=== PATIENT | female | born 1945 | race Caucasian/White ===

== ENCOUNTER 2017-02-19 04:02 | Emergency (ER) | payer MEDICARE, BC ==
[2017-02-19 04:16] VITALS: BP 115/61
--- NOTE | 2017-02-19 04:41 | EDM.PDOC ---
ED HPI GENERAL MEDICAL PROBLEM - General Chief Complaint: General Stated Complaint: poss reaction to meds Time Seen by Provider: 02/19/17 04:31 - History of Present Illness INITIAL COMMENTS - FREE TEXT/NARRATIVE: 72-year-old female presents emergency room with a suspected reaction to clonazepam. The patient took her first dose of clonazepam this evening. She was placed on this for restless leg syndrome her last medication for restless leg syndrome was not working real well and was stopped. This evening she could not walk real well and became somewhat anxious after taking the medication. She is doing much better at this time. It sounds like she's had a long history with restless leg syndrome and sometimes it keeps her from sleeping several days in a row. - Related Data Allergies Allergy/AdvReac Type Severity Reaction Status Date / Time codeine Allergy Nausea Verified 02/19/17 04:15 Home Meds: Home Meds FLUoxetine [PROzac] 20 mg PO DAILY 09/15/14 [History] Propranolol [Inderal] 10 mg PO DAILY 09/15/14 [History] ClonazePAM [KlonoPIN] 0.5 mg PO BEDTIME 02/19/17 [History] busPIRone HCl [busPIRone] 30 mg PO DAILY 02/19/17 [History] Past Medical History Neurological History: Reports: Other (see below) Other Neuro History: RLS - Past Surgical History Musculoskeletal Surgical History: Reports: Hip replacement, Knee replacement Social & Family History - Family History Family Medical History: Noncontributory - Tobacco Use Smoking Status *Q: Never Smoker - Alcohol Use Days Per Week of Alcohol Use: 0 - Recreational Drug Use Recreational Drug Use: No ED ROS GENERAL - Review of Systems Review Of Systems: See Below Constitutional: Reports: no symptoms Respiratory: Reports: No Symptoms Cardiovascular: Reports: No symptoms GI/Abdominal: Reports: No symptoms : Reports: no symptoms Neurological: Reports: No Symptoms ED EXAM, GENERAL - Physical Exam Exam: See Below Exam Limited By: No limitations General Appearance: alert, no apparent distress, other (Patient has no complaints at this time) Respiratory/Chest: no respiratory distress, lungs clear, normal breath sounds Cardiovascular: regular rate, rhythm, no edema, no murmur Course - Vital Signs Last Recorded V/S: Last Vital Signs Temp 36.6 C 02/19/17 04:12 Pulse 80 05/11/17 04:12 Resp 16 02/19/17 04:12 BP 115/61 02/19/17 04:12 Pulse Ox 97 02/19/17 04:12 - Re-Assessments/Exams Free Text/Narrative Re-Assessment/Exam: 02/19/17 04:57 Discussed the situation with the patient. She's doing much better at this time and would like to go home. Departure - Departure Time of Disposition: 04:57 Disposition: Home, Self-Care 01 Clinical Impression: Restless leg syndrome, Medication reaction - Discharge Information Forms: ED Department Discharge Additional Instructions: Return to the emergency room with any questions or problems. Call your physician later today or try and get into the clinic. Discontinue the clonazepam. Consider taking Benadryl 25 mg at bedtime this may help you sleep I doubt it will have much effect on the restless leg.
== END 2017-02-19 05:00 | disposition home or self-care (01) ==
LOC: JD.ED 04:02
DX: G25.81 Restless legs syndrome (principal); T50.905A Adverse effect of unspecified drugs, medicaments and biological substances, initial encounter; Z88.5 Allergy status to narcotic agent; Z79.899 Other long term (current) drug therapy; Z96.649 Presence of unspecified artificial hip joint; Z96.659 Presence of unspecified artificial knee joint
CPT/HCPCS: 99282; 99283

== ENCOUNTER 2017-12-12 14:25 | Emergency (ER) | payer MEDICARE, BC ==
[2017-12-12 14:37] VITALS: BP 167/91
[2017-12-12] MEDS ORDERED: Sodium Chloride 0.9% 10 ML Syringe FLUSH PRN (14:50)
[2017-12-12] MEDS ORDERED: Aspirin 81 MG Tab.Chew PO ONE (14:50)
[2017-12-12] MEDS ORDERED: Morphine 2 MG/ML Syringe IVPUSH ONE (16:55)
--- NOTE | 2017-12-12 18:30 | EDM.PDOC ---
ED HPI GENERAL MEDICAL PROBLEM - General Chief Complaint: Chest Pain Stated Complaint: CHEST PAIN Time Seen by Provider: 12/12/17 14:37 Source of Information: Reports: Patient History Limitations: Reports: No Limitations - History of Present Illness INITIAL COMMENTS - FREE TEXT/NARRATIVE: The patient presents with chest pain. This started this morning. The pain is pressure like and it comes and goes. She has no shortness of breath, cough, fever, chills, abdominal pain, nausea or vomiting. She has no risk factors such as diabetes, HTN, hypercholesterolemia, and she does not smoke. Exertion does not make it worse. Onset: Gradual Duration: Hour(s): Location: Reports: Chest Quality: Reports: Pressure Severity: Mild Improves with: Reports: None Worsens with: Reports: None Associated Symptoms: Reports: Chest Pain. Denies: Cough, Fever/Chills, Headaches, Nausea/Vomiting, Shortness of Breath Treatments [employer]: Reports: Aspirin Other Treatments [employer]: 325mg aspirin 20 min ago Chest Pain Score (Numeric/FACES): 8 - Related Data Allergies Allergy/AdvReac Type Severity Reaction Status Date / Time codeine Allergy Nausea Verified 12/12/17 14:32 Home Meds: Home Meds Propranolol [Inderal] 10 mg PO DAILY 09/15/14 [History] ClonazePAM [KlonoPIN] 0.5 mg PO BEDTIME 02/19/17 [History] busPIRone HCl [busPIRone] 30 mg PO DAILY 02/19/17 [History] Past Medical History HEENT History: Reports: Impaired Vision Gastrointestinal History: Reports: Gastritis, Other (See Below) Other Gastrointestinal History: ulcer [employer] History: Reports: Neurological History: Reports: Migraines Other Neuro History: RLS Psychiatric History: Reports: Anxiety - Past Surgical History Musculoskeletal Surgical History: Reports: Hip Replacement, Knee Replacement Social & Family History - Family History Family Medical History: Noncontributory - Tobacco Use Smoking Status *Q: Never Smoker - Caffeine Use Caffeine Use: Reports: Coffee, Tea - Alcohol Use Days Per Week of Alcohol Use: 0 - Recreational Drug Use Recreational Drug Use: No ED ROS GENERAL - Review of Systems Review Of Systems: See Below Constitutional: Reports: No Symptoms HEENT: Reports: No Symptoms Respiratory: Reports: No Symptoms Cardiovascular: Reports: Chest Pain Endocrine: Reports: No Symptoms GI/Abdominal: Reports: No Symptoms : Reports: No Symptoms Musculoskeletal: Reports: No Symptoms ED EXAM, GENERAL - Physical Exam Exam: See Below Exam Limited By: No Limitations General Appearance: Alert, No Apparent Distress Ears: Normal External Exam Nose: Normal Inspection Head: Atraumatic, Normocephalic Neck: Normal Inspection Respiratory/Chest: No Respiratory Distress, Lungs Clear, Normal Breath Sounds Cardiovascular: Regular Rate, Rhythm, No Edema, No Murmur GI/Abdominal: Soft, Non-Tender, No Organomegaly, No Mass Back Exam: Normal Inspection Extremities: Normal Inspection EKG INTERPRETATION EKG Date: 12/12/17 Time: 14:36 Rhythm: NSR Rate (Beats/Min): 60 [place]: Normal P-Wave: Present QRS: Normal ST-T: Normal QT: Normal Course - Vital Signs Last Recorded V/S: Last Vital Signs Temp 97.6 F 12/12/17 14:35 Pulse 71 12/12/17 14:35 Resp 22 H 12/12/17 14:35 BP 167/91 H 12/12/17 14:35 Pulse Ox 100 12/12/17 14:35 - Orders/Labs/Meds Orders: Active Orders 24 hr Category Date Time Status Cardiac Monitoring [RC] . DIRECTED Care 12/12/17 14:50 Active EKG Documentation Completion [RC] ASDIRECTED Care 12/12/17 17:36 Active EKG Documentation Completion [RC] STAT Care 12/12/17 14:51 Active Peripheral IV Care [RC] . DIRECTED Care 12/12/17 14:51 Active Chest 1V Frontal [CR] Stat Exams 12/12/17 14:51 Taken Sodium Chloride 0.9% [Saline Flush] Med 12/12/17 14:50 Active 10 ml FLUSH ASDIRECTED PRN Peripheral IV Insertion Adult [OM.PC] Stat Oth 12/12/17 14:50 Ordered EKG 12 Lead [EK] Stat Ther 12/12/17 17:36 Ordered Medication Orders Sodium Chloride (Saline Flush) 10 ml FLUSH ASDIRECTED PRN PRN Reason: Keep Vein Open Last Admin: 12/12/17 15:30 Dose: 10 ml Labs: Laboratory Tests 12/12/17 12/12/17 12/12/17 Range/Units 15:22 15:22 17:44 WBC 7.81 (3.98-10.04) K/mm3 RBC 4.74 (3.98-5.22) M/mm3 Hgb 14.5 (11.2-15.7) gm/L Hct 42.8 (34.1-44.9) % MCV 90.3 (79.4-94.8) fl MCH 30.6 (25.6-32.2) pg MCHC 33.9 (32.2-35.5) g/dl RDW Std Deviation 43.3 (36.4-46.3) fL Plt Count 254 (182-369) K/mm3 MPV 10.7 (9.4-12.3) fl Neut % (Auto) 72.5 H (34.0-71.1) % Lymph % (Auto) 17.5 L (19.3-51.7) % [place] % (Auto) 7.9 (4.7-12.5) % Eos % (Auto) 1.7 (0.7-5.8) Baso % (Auto) 0.3 (0.1-1.2) % Neut # (Auto) 5.66 (1.56-6.13) K/mm3 Lymph # (Auto) 1.37 (1.18-3.74) K/mm3 [place] # (Auto) 0.62 H (0.24-0.36) K/mm3 Eos # (Auto) 0.13 (0.04-0.36) K/mm3 Baso # (Auto) 0.02 (0.01-0.08) K/mm3 Sodium 140 (136-145) mEq/L Potassium 4.2 (3.5-5.1) mEq/L Chloride 104 (98-107) mEq/L Carbon Dioxide 31 (21-32) mEq/L Anion Gap 9.2 (5-15) BUN 14 (7-18) mg/dL Creatinine 0.9 (0.55-1.02) mg/dL Est Cr Clr Drug Dosing 48.11 mL/min Estimated GFR (MDRD) > 60 (>60) mL/min BUN/Creatinine Ratio 15.6 (14-18) Glucose 95 (80-115) mg/dL Calcium 9.3 (8.5-10.1) mg/dL Total Bilirubin 0.3 (0.2-1.0) mg/dL AST 19 (15-37) U/L ALT 16 (14-59) U/L Alkaline Phosphatase 151 H (46-116) U/L Troponin I < 0.017 < 0.017 (0.00-0.056) ng/mL Total Protein 7.0 (6.4-8.2) g/dl Albumin 3.8 (3.4-5.0) g/dl Globulin 3.2 gm/dL Albumin/Globulin Ratio 1.2 (1-2) Meds: Medications Generic Name Dose Route Start Last Admin Trade Name Freq PRN Reason Stop Dose Admin Sodium Chloride 10 ml 12/12/17 14:50 12/12/17 15:30 Saline Flush FLUSH 10 ml ASDIRECTED PRN Administration Keep Vein Open Discontinued Medications Generic Name Dose Route Start Last Admin Trade Name Freq PRN Reason Stop Dose Admin Aspirin 324 mg 12/12/17 14:50 12/12/17 15:30 Aspirin PO 12/12/17 14:51 324 mg ONETIME ONE Administration Morphine Sulfate 2 mg 12/12/17 16:55 12/12/17 17:10 Morphine IVPUSH 12/12/17 16:56 2 mg ONETIME ONE Administration - Re-Assessments/Exams Free Text/Narrative Re-Assessment/Exam: 12/12/17 18:30 I ordered an IV saline lock, EKG, CXR, labs, and aspirin. Her EKG shows a NSR with no acute changes. Her CXR looks good. Her CBC and CMP look good. Her troponin is negative. She still has that pain at times. I ordered a dose of morphine 2mg IV. I ordered a repeat EKG and it had no changes. I am waiting for her repeat troponin. 12/12/17 18:41 Her repeat troponin is negative. I do not feel like this is her heart. She feels better. I will have her follow up with Dr Falk and talk about possibly getting a stress test. Departure - Departure Time of Disposition: 18:45 Disposition: Home, Self-Care 01 Condition: Good Clinical Impression: Atypical chest pain Referrals: Cresencio Falk MD [Primary Care Provider] - Forms: ED Department Discharge Additional Instructions: Take motrin or tylenol for the pain. Follow up with Dr Falk as scheduled. Please return if you are worse. - My Orders Last 24 Hours: My Active Orders 12/12/17 14:50 Cardiac Monitoring [RC] . DIRECTED Sodium Chloride 0.9% [Saline Flush] 10 ml FLUSH ASDIRECTED PRN Peripheral IV Insertion Adult [OM.PC] Stat 12/12/17 14:51 EKG Documentation Completion [RC] STAT Peripheral IV Care [RC] . DIRECTED Chest 1V Frontal [CR] Stat 12/12/17 17:36 EKG Documentation Completion [RC] ASDIRECTED EKG 12 Lead [EK] Stat - Assessment/Plan Last 24 Hours: My Active Orders 12/12/17 14:50 Cardiac Monitoring [RC] . DIRECTED Sodium Chloride 0.9% [Saline Flush] 10 ml FLUSH ASDIRECTED PRN Peripheral IV Insertion Adult [OM.PC] Stat 12/12/17 14:51 EKG Documentation Completion [RC] STAT Peripheral IV Care [RC] . DIRECTED Chest 1V Frontal [CR] Stat 12/12/17 17:36 EKG Documentation Completion [RC] ASDIRECTED EKG 12 Lead [EK] Stat
--- NOTE | 2017-12-14 09:15 | CR ---
Chest: Portable view of the chest was obtained. Comparison: No prior chest x-ray. Heart size is normal. Tortuous thoracic aorta is seen. Left hemidiaphragm is poorly seen which is felt compatible with left basilar atelectasis. Lungs otherwise are clear. Bony structures are grossly intact. Impression: 1. Mild left basilar atelectasis. 2. Nothing acute is otherwise seen on portable chest x-ray. Diagnostic code #2
== END 2017-12-12 18:50 | disposition home or self-care (01) ==
LOC: JD.ED 14:25
DX: R07.89 Other chest pain (principal); F41.9 Anxiety disorder, unspecified; Z79.899 Other long term (current) drug therapy; Z88.5 Allergy status to narcotic agent
CPT/HCPCS: 36415; 71045; 80053; 84484; 85025; 93005; 96374; 99285; A9270; J2270; J7050; 93010; 99284-25